=== PATIENT | female | born 1955 ===

== ENCOUNTER 2022-11-27 10:45 | Outpatient (RCR) | payer MEDICARE, SELFPAY ==
[2022-10-16 11:19] VITALS: BMI 26.5
[2022-11-07 09:20] VITALS: BMI 25.7
[2022-11-07 09:25] VITALS: BMI 25.7
[2022-11-27 10:45] VITALS: BMI 25.6
== END 2022-12-31 12:09 | disposition home or self-care (01) ==
LOC: ANHDMC 10:45
PROVIDERS: PCP Physician Assistant; Visit Provider Physician Assistant
DX: R73.9 Hyperglycemia, unspecified (principal); Z71.3 Dietary counseling and surveillance
CPT/HCPCS: 97802; 97803